=== PATIENT | male | born 1945 | race Caucasian/White ===

== ENCOUNTER → 2016-11-04 | Outpatient (CLI) | payer BC | LOC: COL.RAD 11:12 | DX: M25.551 Pain in right hip (principal); M16.11 Unilateral primary osteoarthritis, right hip | CPT/HCPCS: J3301; Q9967 ==

== ENCOUNTER → 2017-03-17 | Outpatient (CLI) | payer BC | LOC: COL.RAD 08:46 | DX: M16.11 Unilateral primary osteoarthritis, right hip (principal) | CPT/HCPCS: J3301; Q9967 ==

== ENCOUNTER → 2017-04-19 | Outpatient (CLI) | payer BC | LOC: COL.RAD 14:00 | DX: M21.70 Unequal limb length (acquired), unspecified site (principal) ==

== ENCOUNTER → 2017-09-05 | Outpatient (CLI) | payer BC | LOC: COL.RAD 12:52 | DX: M16.11 Unilateral primary osteoarthritis, right hip (principal) | CPT/HCPCS: J3301; Q9967 ==

== ENCOUNTER → 2018-01-29 | Outpatient (CLI) | payer BC ==
[2018-01-29 13:28] LABS: HIV 1/2 Antibodies Non-Reactive; HIV-1p24 Antigen Non-Reactive
== END ==
LOC: COL.LAB 12:09
PROVIDERS: Orthopaedic Surgery
DX: Z01.812 Encounter for preprocedural laboratory examination (principal); M16.11 Unilateral primary osteoarthritis, right hip

== ENCOUNTER → 2024-02-29 | Outpatient (CLI) | payer MEDICARE, BC ==
[~2024-02-29] MED LIST: Iohexol 350 - 100 ML VIAL IV ONE; NS 100 ML IV SCH
== END ==
LOC: COL.RAD 07:23
DX: I74.3 Embolism and thrombosis of arteries of the lower extremities (principal)
CPT/HCPCS: Q9967